=== PATIENT | female | born 1960 | race Caucasian/White ===

== ENCOUNTER 2019-09-13 07:40 | Emergency (ER) | payer SELFPAY ==
[2019-09-13 07:41] VITALS: BP 101/79; PULSE 176; RESP 20; TEMP 36.6; O2SAT 98; BMI 30.9
--- NOTE | 2019-09-13 07:59 | EKG12_ITS ---
Test Reason : SVT Blood Pressure : / mmHG Vent. Rate : 176 BPM Atrial Rate : 176 BPM P-R Int : 160 ms QRS Dur : 086 ms QT Int : 276 ms P-R-T Axes : 038 057 198 degrees QTc Int : [address] & T wave abnormality, consider inferolateral ischemia Abnormal ECG Confirmed by COLE HARMON ([id number]), production editor LOLITA LOAIZA ([id number]) on 09/16/2019 11:14:06 AM Referred By: ASAD Confirmed By:COLE HARMON
--- NOTE | 2019-09-13 08:00 | EKG12_ITS ---
Test Reason : SVT Blood Pressure : / mmHG Vent. Rate : 065 BPM Atrial Rate : 065 BPM P-R Int : 140 ms QRS Dur : 084 ms QT Int : 346 ms P-R-T Axes : 040 060 074 degrees QTc Int : 359 ms Normal sinus rhythm Nonspecific ST abnormality Abnormal ECG Confirmed by COLE HARMON ([id number]), copy editor LOLITA LOAIZA ([id number]) on 09/16/2019 11:14:21 AM Referred By: ASAD Confirmed By:COLE HARMON
--- NOTE | 2019-09-13 08:00 | ED.VIS.GEN ---
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 She used to be able to break her SVT with vagal maneuvers, however she needed a couple stents and since then she has been unable to use vagal maneuvers to break her SVT and usually requires adenosine. She denies having any chest pain or shortness of breath, aside from a very brief episode of mild chest discomfort at the onset, it quickly dissipated and did not recur. She denies any swelling recently. No recent illnesses. - Past Medical History (1) Paroxysmal supraventricular tachycardia Status: Chronic (2) Hypertension Status: Chronic (3) Coronary artery disease Status: Chronic Past Medical History - Allergies and Home Meds Allergies/Adverse Reactions: Allergies No Known Allergies Allergy (Verified 09/13/19 07:45) Primary Care Physician: Verito Guzman,Out of [Primary Care Provider] - Surgical History: angioplasty - Cardiac stent x2 Lives: With Family Drugs: None Review of Systems General: Reports: Malaise. Denies: Chills, Fever, Sweats Eyes: Denies: Visual changes - bilaterally, Diplopia ENT: Denies: Rhinorrhea, Sore throat Cardiovascular: Reports: Chest pain - Resolved. See HPI., Palpitations, Heart racing Respiratory: Denies: Dyspnea, Cough, Dyspnea on exertion Gastrointestinal: Denies: Abdominal pain, Nausea, Vomiting, Diarrhea, Melena, Hematochezia Genitourinary: Denies: Dysuria, Hematuria, Frequency Musculoskeletal: Denies: Back pain, Swelling, Extremity Pain Skin: Denies: Rash, Wounds Neurological: Denies: Headache, Weakness, Numbness Physical Exam Vital Signs/Narrative: Vital Signs Temp Pulse Resp BP Pulse Ox 09/13/19 07:41 97.9 F 176 H 20 H 101/79 98 Inital Vital Signs reviewed: Yes General: Well nourished, Well developed, No Acute Distress Head: Normocephalic, Atraumatic Eyes: Perrl, EOMI ENT: Moist mucous membranes, No rhinorrhea Neck: Supple, Nontender Cardiovascular: Regular rate, Regular rhythm, Tachycardia Respiratory: No distress, CTA bilaterally, Chest nontender Abdomen: Soft, Nontender, Nondistended, Normal bowel sounds Back: Nontender, Normal Inspection Extremities: Nontender, No edema. Negative for: Calf Tenderness Skin: Normal color, No rash, No Trauma Neurological: Alert - Keenly. Well-appearing., Oriented x3, Cranial nerves II-XII grossly intact, Normal Strength, Normal Sensation, Normal Gait Psychological: Normal affect, Normal Mood Diagnostic/Tx/Re-eval Laboratory Results 09/13/19 09/13/19 07:45 07:45 WBC 16.5 H RBC 4.58 Hgb 11.6 L Hct 38.0 MCV 83.0 MCH 25.3 L MCHC 30.5 L RDW Std Deviation 46.8 H RDW Coeff of Dennis 15.4 H Plt Count 456 H MPV 11.3 Immature Gran % (Auto) 0.400 Neut % (Auto) 81.3 H Lymph % (Auto) 14.2 L [place] % (Auto) 3.5 Eos % (Auto) 0.4 Baso % (Auto) 0.2 Absolute Neuts (auto) 13.4 H Absolute Lymphs (auto) 2.34 Nucleated RBC % 0 Sodium 139 Potassium 4.4 Chloride 109 H Carbon Dioxide 25.0 Anion Gap 5 BUN 19 H Creatinine 1.09 H Estim Creat Clear Calc 47.99 Est GFR (MDRD) Af Amer 66 Est GFR (MDRD) Non-Af 55 L BUN/Creatinine Ratio 17.4 Glucose 156 H Calcium 9.7 Troponin I 0.079 H - Rhythm Strip Rhythm Strip: SVT Rate: 178 Ectopy: None - EKG Initial EKG Interpretation: No Acute Injury Pattern, SVT Follow-up EKG Interpretation: Sinus Rhythm, No Acute Injury Pattern - Normal EKG - Medical Decision Making Attempted modified vagal maneuver initially, however it was unsuccessful did not cause any changes in her rhythm. After verbal consent she was then given adenosine 6 mg, this successfully broke the rhythm and she tolerated it well, she went to sinus rhythm, she had no recurrence while being monitored. Her labs are unremarkable. Patient is comfortable being discharged and will follow-up with her doctor after she gets back to [place], she is leaving tomorrow. - Critical Care Time Critical care time (excluding procedures): 30-74 minutes - 30 minutes, not including procedures, including time spent discussing with patient, performing direct patient care to bedside. Procedures Procedure(s): Pharmacologic cardioversion --pretreated with oxygen, IV fluids. Adenosine 6 mg given via IV push. There is resulted in break in rapid SVT to sinus rhythm. Tolerated well, no complications. 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
--- NOTE | 2019-09-13 08:00 | ED.RN ---
adenocard 6 mg ivp given emergently for treatment of svt at 182.
[2019-09-13 08:01] VITALS: PULSE 61; RESP 18; O2SAT 99
[2019-09-13 08:02] VITALS: BP 123/70; PULSE 61; RESP 18; O2SAT 99
[2019-09-13] MEDS: Adenosine 6 MG/2 ML Syringe IV (08:05)
[2019-09-13 08:09] LABS: Absolute Lymphocyte Count 2.34 X10^3/uL (0.83-4.51); Absolute Neutrophil Count 13.4 X10^3/uL (2.0-7.7); Basophil# 0.04 X10^3/uL; Basophil% 0.2 % (0-1); Eosinophil# 0.06 X10^3/uL; Eosinophils% 0.4 % (0-5); Hemoglobin 11.6 g/dL (12.0-15.0); Lymphocyte # 2.34 X10^3/ul (4.0); Lymphocyte % 14.2 % (19-41); Mean Corp Hgb Conc 30.5 g/dL (32-36); Mean Corpuscular Hgb 25.3 pg (27.0-32.0); Mean Platelet Vol. 11.3 fl (6.2-12.0); Monocyte# 0.57 X10^3/uL; Monocyte% 3.5 % (0-10); NRBC Flagged by Analyzer 0 % (0-5); Neutrophil # 13.41 X10^3/uL (2.7-7.7); Neutrophil % 81.3 % (47-70); Platelet Count 456 K/mm3 (150-450); RBC Distribution Width CV 15.4 % (11.6-14.6); RBC Distribution Width SD 46.8 fl (35.1-43.9); Red Blood Count 4.58 M/mm3 (4.2-5.4); White Blood Count 16.5 K/mm3 (4.4-11.0)
[2019-09-13 08:16] LABS: Anion Gap 5 (5-15); BUN 19 mg/dL (7-18); BUN/Creat Ratio 17.4 RATIO (10-20); Calcium,Total 9.7 mg/dL (8.5-10.1); Chloride 109 mmol/L (98-107); Creatinine, Serum 1.09 mg/dL (0.55-1.02); EST Glomerular Filtration Rate 55 mL/min (>60); Est Glom Filt Rate - Afr Amer 66 mL/min (>60); Estimated Creatinine Clearance 47.99 ml/min; Glucose 156 mg/dL (74-106); Potassium 4.4 mmol/L (3.5-5.1); Sodium Level 139 mmol/L (136-145)
[2019-09-13 09:47] VITALS: BP 130/79; PULSE 66; RESP 18; O2SAT 100
== END 2019-09-13 09:50 | disposition home or self-care (01) ==
PROVIDERS: Emergency Provider Emergency Medicine
DX: I47.1 Supraventricular tachycardia (principal); I25.10 Atherosclerotic heart disease of native coronary artery without angina pectoris; I10 Essential (primary) hypertension; Z95.5 Presence of coronary angioplasty implant and graft
CPT/HCPCS: 80048; 84484; 85025; 93005; 96374; 99284; J7030; A4216; J0153